=== PATIENT | female | born 1980 | race Caucasian/White ===

== ENCOUNTER 2019-04-28 08:37 | Day surgery (SDC) | payer BC ==
--- NOTE | 2019-04-23 09:58 | HP ---
AMENDED REPORT NOW INCLUDES DESIGNATED COSIGNER PREOPERATIVE HISTORY AND PHYSICAL: DATE OF ADMISSION/SURGERY: 04/28/19 DATE OF OFFICE VISIT/ENCOUNTER: 04/15/19 ATTENDING SURGEON: Bindu Wolfe MD.* (DICTATED BY YG ORR) PROCEDURE: Left thumb carpometacarpal joint arthroplasty, left wrist flexor tenosynovectomy. HISTORY OF PRESENT ILLNESS: This is a 38-year-old female with history of Jaleel - Danlos syndrome. She has been complaining of pain at the base of her left thumb that has been ongoing for many years. 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 Occasionally, she feels like her thumb is popping out of place. She denies any acute injury to this thumb. She denies any associated numbness or tingling. She is also complaining of a lump on the volar aspect of her left wrist that has been present for several months. The lump is minimally tender to palpation, but is bothersome when she moves her fingers and her wrist or places pressure on the area. She has had imaging studies, x-rays and an MRI of the left thumb and wrist, which show moderate degenerative changes at the thumb CMC joint and MRI showed tendonitis of the FCR, EPB and APL tendons. The patient has consented to proceed with surgical intervention for both of these problems. She is followed by Dr. Ruiz for cardiac issues related to her Jaleel-Danlos syndrome. She gets checked yearly by Dr. Ruiz. We will get cardiac clearance prior to proceeding with surgery. PAST MEDICAL HISTORY: 1. Jaleel-Danlos syndrome. 2. Hypothyroidism - Faith's disease. 3. Seasonal allergies. 4. Thrombocytopenia disorder. PAST SURGICAL HISTORY: [place] teeth extraction. CURRENT MEDICATIONS: 1. [id number] Allergy 25 mg one tab daily. 2. Joint Tendon Ligament I supplement. 3. Joint Tendon Ligament II supplement. 4. CEMENT GUN OPERATOR Thyroid 90 mg daily. 5. [employer] EPA-DHA 720 daily. 6. Vitamin D3 maximum strength 5000 units daily. ALLERGIES: CLINDAMYCIN causes rash and hives. SHELLFISH causes an anaphylactic reaction. FAMILY MEDICAL HISTORY: Unknown. 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 She denies tobacco use and recreational drug use. She drinks alcohol on occasion. REVIEW OF SYSTEMS: Negative for general, cephalic, cardiovascular, respiratory , GI, , other musculoskeletal, integumentary, endocrine, neurologic, and hematologic symptoms. Infectious Disease: Negative for MRSA, hepatitis C, HIV. PHYSICAL EXAMINATION GENERAL: A well-developed, well-nourished 38-year-old female, in no acute distress. VITAL SIGNS: Height 5 feet 3 inches, weight 147 pounds. Pulse rate 74, blood pressure 120/80. HEENT: Normocephalic, atraumatic. Pupils are equal, round, and reactive to light and accommodation. Extraocular movements are intact. NECK: Supple. No palpable lymph nodes. Throat is clear. PULMONARY: Lungs are clear to auscultation bilaterally. No wheezes, rales, or rhonchi. CARDIOVASCULAR: Regular rate and rhythm. S1, S2. No murmurs, rubs, or gallops. No edema. ABDOMEN: Positive bowel sounds, soft, nontender. NEUROLOGIC: Alert and oriented x3. Cranial nerves II through XII are intact. Sensation is intact to light touch. MUSCULOSKELETAL: On exam of her left thumb and wrist, she has some swelling present on the volar aspect of the wrist in the area of the flexor carpi radialis. It appears to be moving with motion of the tendon. It is tender to palpation. She also has tenderness to palpation at the thumb CMC joint. She has hyperextension of her MP joints in all of her fingers and no particular pain when she is moving her thumb through a resisted range of motion. She has a positive grind test at the left thumb. Neurovascular function is intact throughout. IMAGING STUDIES: X-rays of the left thumb show progressing osteoarthritic changes at the CMC joint with slight subluxation at the joint. MRI shows moderate degenerative changes at the thumb CMC joint and tendonitis of the FCR, EPB, and APL tendons. IMPRESSION: As above. PLAN: The patient is scheduled to undergo a left thumb CMC joint arthroplasty and a left wrist flexor tenosynovectomy with Dr. Wolfe on 04/28/19. She will return to the office 10 days postop for followup and suture removal. A prescription for Ekron was e-scribed to the patient's pharmacy for postoperative pain management. We will get clearance from Dr. Ruiz prior to proceeding with surgery. YG ORR [id number]/[facility] #: [id number] [facility]
[~2019-04-28 08:37] MED LIST: Buffered Lidocaine 1% SYRIN* 1 ML/SYRINGE INTRADERM ONE; Lactated Ringers 1000 ML Bag* 1,000 ML IV SCH
[2019-04-28] MEDS ORDERED: ceFAZolin 2 GM PREMIX in ORs 2 GM/50 ML BAG ONE (09:40)
[2019-04-28] MEDS ORDERED: Bupivacaine 0.5% SDV PF* 30ML VIAL ONE (10:30)
[2019-04-28] MEDS ORDERED: fentaNYL* 50 MCG/ML 2 ML VIAL (100 MCG VIAL) IV PRN (10:42)
[2019-04-28] MEDS ORDERED: Naloxone* 0.4 MG/ML 1 ML VIAL IV PRN (10:42)
[2019-04-28] MEDS ORDERED: Ondansetron INJ* 2 MG/ML VIAL IV PRN (10:42)
[2019-04-28] MEDS ORDERED: Acetaminophen IV 1GM/100ML * 1,000 MG/100 ML VIAL IVPB ONE (10:42)
[2019-04-28] MEDS ORDERED: Midazolam* 1 MG/ML 2 ML VIAL (2 MG) ONE ×3 (10:48→11:13)
[2019-04-28] MEDS ORDERED: Lidocaine 0.5%* 50 ML SDV ONE (10:48)
[2019-04-28] MEDS ORDERED: fentaNYL* 50 MCG/ML 2 ML VIAL (100 MCG VIAL) ONE (11:52)
[2019-04-28 12:50] VITALS: BP 122/73
[2019-04-28] MEDS ORDERED: Ibuprofen TAB* 600 MG ONE (12:59)
--- NOTE | 2019-04-28 23:35 | OP ---
DATE OF OPERATION: 04/28/19 - [facility] DATE OF : 78 SURGEON: Bindu Wolfe MD SPEEDBOAT OPERATOR: YG Veloz ANESTHESIA: IV regional. PRE-OP DIAGNOSES: Left thumb carpometacarpal arthritis and instability and left wrist flexor tenosynovitis. POST-OP DIAGNOSES: Left thumb carpometacarpal arthritis and instability and left wrist flexor tenosynovitis. OPERATIVE PROCEDURE: Flexor tenosynovectomy of the flexor carpi radialis of the left wrist and left thumb CMC arthroplasty with APL suspension. INDICATIONS: Jennifer is a 38-year-old female who has persistent pain and difficulty with her left thumb. 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 She also has 2 masses on the volar aspect of her left wrist on the flexor carpi radialis tendon. She presents for removal of masses and thumb CMC arthroplasty. ESTIMATED BLOOD LOSS: Zero. TOURNIQUET TIME: About 45 minutes. DESCRIPTION OF PROCEDURE: The patient was brought to the operating room and was given an IV regional anesthetic with tourniquet around her left forearm. Skin of her left hand and forearm was prepped and draped in the usual sterile fashion. The two masses on the forearm were removed with three small incisions and appeared to be tenosynovitis. This was sent for pathology. The tenosynovitis was on the flexor carpi radialis tendon. The wounds were irrigated and the skin edges were reapproximated with 4-0 nylon suture. Next, an S-shaped incision was made centered at the base of the thumb metacarpal. We dissected bluntly through the subcutaneous tissue. Branches of the radial sensory nerve were located and then retracted by the cardiovascular surgical tech, Albertina Jaramillo. The APL and EPB tendons were retracted and then the radial artery was carefully dissected off the CMC joint capsule and retracted by the cardiovascular surgical tech, Albertina Jaramillo. Distally based U-shaped flap was created of the thumb CMC joint and then the trapezium was removed in its entirety. We then made a suspensionplasty by securing the APL tendon to the FCR tendon in the base of the wound. The CMC joint capsule was also secured to the FCR tendon in order to stabilize her hypermobile joint. The wound was copiously irrigated with saline. The remainder of the capsule was closed with 4-0 nylon suture. Skin edges were reapproximated with 4-0 nylon suture and then dressed with Xeroform, 4x4, Webril, and a thumb spica splint. The patient tolerated the procedure well and was brought to the recovery room in good condition. [id number]/[facility] #: [id number] MTDD
== END 2019-04-28 13:05 | disposition home or self-care (01) ==
LOC: OREAST 08:37
PROVIDERS: ATTEND Orthopaedic Surgery
DX: M18.12 Unilateral primary osteoarthritis of first carpometacarpal joint, left hand (principal); M65.842 Other synovitis and tenosynovitis, left hand; Q79.6 Ehlers-Danlos syndromes; E03.9 Hypothyroidism, unspecified; J30.2 Other seasonal allergic rhinitis; D69.6 Thrombocytopenia, unspecified; I08.1 Rheumatic disorders of both mitral and tricuspid valves
CPT/HCPCS: 81025; 88304; 88311; A9270-GY; J0690; J2250; J3010; J3490